=== PATIENT | female | born 1965 | race African-American/Black ===

== ENCOUNTER 2018-12-08 00:08 | Observation (INO) | payer OTHER ==
[~2018-12-08] VITALS: Ht 167.6 cm; Wt 74.6 kg
[2018-12-08] VITALS (23 sets, daily range): BP systolic 104–149; BP diastolic 56–84; PULSE 54–109; TEMP 97.5–98.7
[2018-12-08] MEDS ORDERED: ASPIRIN 32325 MG/TAB PO (00:57)
[2018-12-08] MEDS ORDERED: PRAVACHOL 40MG40 MG (00:58)
[2018-12-08] MEDS ORDERED: WATER PILL (01:01)
[2018-12-08] MEDS ORDERED: DEPRESSION PILL (01:01)
[2018-12-08] MEDS ORDERED: MULTIVITAMIN FO1 CAP PO (01:02)
[2018-12-08] MEDS ORDERED: VITAMINE200 (01:03)
--- NOTE | 2018-12-08 01:10 | NUR ---
Arrived to medical floor via EMS
--- NOTE | 2018-12-08 01:47 | NUR ---
Assessment completed. Right lower lobe diminished otherwise clear. Heart sounds normal. Bowels active x4. Pulses strong throughout. INT right AC present. Patient orientated to medical floor. During admission assessment patient displays cognitive impairment with delayed ability to answer questions and understanding of phrases. Patient unable to provide accurate medication rec. Patient states "water pill" "little orange pill" "purple pill." Will pass on to next shift to obtain medication list from [place] pharmacy/PCP. All questions answered. Denies needs at this time. Call light in reach. Attempted to [place] Dr. Christian of patient arrival. No answer at this time. Will try again later.
--- NOTE | 2018-12-08 03:05 | NUR ---
Reported 8/10 headache. Provided with PRN tylenol.
[2018-12-08 03:35] LABS: ALANINE AMINOTRANSFERASE 17 U/L (9-52); ALBUMIN 3.9 gm/dL (3.5-5.0); ALKALINE PHOSPHATASE 60 U/L (50-136); ANION GAP 8 mmol/L (7-16); AST,SGOT 35 U/L (15-37); BASO # 0.1 (0.0-0.2); BASO % 1.1 % (0.0-2.0); BILIRUBIN,TOTAL 0.3 mg/dL (0.0-1.0); BLOOD UREA NITROGEN 17 mg/dL (7-17); CALCIUM 8.9 mg/dL (8.4-10.2); CARBON DIOXIDE 28 mmol/L (22-30); CHLORIDE 107 mmol/L (98-107); CREATININE, serum 0.56 (0.52-1.25); EOS # 0.1 (0.0-0.7); EOS % 2.5 % (0-4.0); GLUCOSE 99 mg/dL (74-106); GRAN # 1.4 (1.4-6.5); GRAN % 30.4 % (42.2-75.2); HEMOGLOBIN 10.8 g/dl (12.5-16.0); LYMPH # 2.7 (1.2-3.4); LYMPH % 59.7 % (20.0-51.0); MEAN CELL VOLUME 85 fl (80.0-100.0); MEAN CORPUSCULAR HEMOGLOBIN 27 pg (27.0-31.0); MEAN CORPUSCULAR HGB CONC 32 g/dl (33.0-37.0); MEAN PLATELET VOLUME 9.6 fl (7.4-10.4); MONO # 0.3 (0.1-0.6); MONO % 6.3 % (1.7-9.3); PLATELET COUNT 230 K/mm3 (130-400); POTASSIUM 3.8 mmol/L (3.4-5.0); RED BLOOD COUNT 3.99 M/mm3 (4.10-5.30); REDCELL DISTRIBUTION WIDTH-CV 14.6 % (11.5-14.5); SODIUM 143 mmol/L (137-145); TOTAL PROTEIN 7.1 gm/dL (6.4-8.2)
[2018-12-08 03:46] LABS: TROPONIN-I < 0.012 ng/mL (0.000-0.035)
--- NOTE | 2018-12-08 06:23 | NUR ---
Patient had uneventful night. Received x1 dose of tylenol for a headache. Resting in bed this AM. Denies needs. Call light in reach.
--- NOTE | 2018-12-08 07:00 | NUR ---
Report given to SAGAR Villagran
--- NOTE | 2018-12-08 08:00 | NUR ---
PATIENT IS DROWSY AND RESTING IN BED THIS MORNING. PATIENT AROUSES EASILY TO NAME AND TOUCH. PATIENT IS A&OX4. VSS. TELE IN PLACE. BOWEL SOUNDS HYPOACTIVE ALL FOUR QUADRANTS. PATIENT IS NPO FOR TESTING. PATIENT DENIES ANY COMPLAINTS OF N/V. PATIENT DENIES CHEST PAIN, TIGHTNESS, PRESSURE OR SOB. POSITIVE PEDAL PULSES EQUAL BILATERALLY. RIGHT AC TO INT. CALL LIGHT WITHIN REACH. PATIENT DENIES ANY OTHER NEEDS AT THIS TIME.
--- NOTE | 2018-12-08 08:57 | NUR ---
PATIENT TAKEN TO RADIOLOGY FOR SCAN. WILL WAIT FOR PATIENT ARRIVAL BACK TO ROOM 311.
[2018-12-08 09:52] LABS: COLLECTION METHOD CLEAN CATCH
[2018-12-08 10:02] LABS: MUCOUS Present /lpf; PH 6 (5-8); SQUAMOUS EPITHELIAL 0-2 /hpf; URINE APPEARANCE Clear; URINE BACTERIA None Seen /hpf; URINE BILIRUBIN Negative (NEGATIVE); URINE BLOOD Negative (NEGATIVE); URINE COLOR Yellow; URINE GLUCOSE Negative (NEGATIVE); URINE KETONE Trace (NEGATIVE); URINE LEUKOCYTE ESTERASE Trace (NEGATIVE); URINE NITRATE Negative (NEGATIVE); URINE PROTEIN(semi-quant) Negative (NEGATIVE); URINE RBC 0-2 /hpf; URINE UROBILINOGEN Negative (NEGATIVE)
--- NOTE | 2018-12-08 10:35 | NUR ---
PATIENT ARRIVED BACK TO ROOM 311 FROM RADIOLOGY.
--- NOTE | 2018-12-08 11:24 | NUR ---
First visit from the cnc wood lathe operator. Publication Specialist prayed with patient and delivered bible to the patient per request. No other needs right now.
[2018-12-08 12:26] LABS: HEMATOCRIT 38.2 % (37.0-47.0); HEMOGLOBIN 12.1 g/dl (12.5-16.0); MEAN CELL VOLUME 86 fl (80.0-100.0); MEAN CORPUSCULAR HEMOGLOBIN 27 pg (27.0-31.0); MEAN CORPUSCULAR HGB CONC 32 g/dl (33.0-37.0); MEAN PLATELET VOLUME 9.9 fl (7.4-10.4); PLATELET COUNT 203 K/mm3 (130-400); RED BLOOD COUNT 4.44 M/mm3 (4.10-5.30); REDCELL DISTRIBUTION WIDTH-CV 14.6 % (11.5-14.5)
[2018-12-08 12:37] LABS: CALCIUM 9.3 mg/dL (8.4-10.2); CREATININE, serum 0.51 (0.52-1.25)
[2018-12-08 12:41] LABS: PROTHROMBIN TIME 11.6 SECONDS (9.7-12.8)
[2018-12-08 12:44] LABS: PARTIAL THROMBOPLASTIN TIME 29.7 SECONDS (26.0-37.0)
--- NOTE | 2018-12-08 12:53 | NUR ---
PATIENT CONSENT FORM SIGNED AND ON PATIENT CHART. PRE-OP MEDICATONS GIVEN. IV FLUIDS TO GRAVITY FLOW TUBING INFUSING TO RIGHT AC IV. PATIENT TAKEN TO SECURITIES LENDING TRADER VIA BED. WILL WAIT FOR ARRIVAL BACK TO ROOM 311.
--- NOTE | 2018-12-08 13:15 | NUR ---
ALL MEDICATIONS GIVEN VORB WITH MD. SEE MERGE FOR ALL MEDICATION ADMIN TIMES. SEE MERGE FOR ALL RASS ASSESSMENTS DURING AND POST PROCEDURE.
--- NOTE | 2018-12-08 14:00 | NUR ---
PATIENT ARRIVED BACK TO ROOM 311 VIA BED FROM STRUCTURAL STEEL ENGINEER. PATIENT IS SEDATED AND AROUSES TO TOUCH AND NAME. POST-OP VSS. RIGHT GROIN ANGIOSEAL IN PLACE AND DRESSING IS CD&I. RIGHT GROIN SOFT TO PALPATION. CALL LIGHT WITHIN REACH. NO NEEDS AT THIS TIME.
--- NOTE | 2018-12-08 15:14 | NUR ---
FABIAN met with the patient to discuss discharge plan. The patient had just returned from a procedure and was difficult to rouse. 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 She states that she has only one daughter, Keesha Correia (ph#[phone]) and that Keesha lives in [place]. She reports independence with ADLs and does not have any DME. The patient states she receives primary care at [facility], but she could not recall their name. [facility] The patient's nurse informed FABIAN that she spoke to Keesha and Keesha informed her that the patient's other daughter just committed suicide a couple weeks ago. The patient plans to return home upon discharge. SW to continue to follow with any discharge needs.
--- NOTE | 2018-12-08 17:45 | NUR ---
PATIENT POST-OP VSS. RIGHT FEMORAL ANGIOSEAL IN PLACE AND IS CD&I. RIGHT GROIN CATH SITE SOFT UPON PALPATION.PATIENT TOLERATING FOOD WITHOUT N/V.
--- NOTE | 2018-12-08 19:00 | NUR ---
REPORT GIVEN TO SAGAR GOSS.
--- NOTE | 2018-12-08 19:05 | NUR ---
Initial shift assessment done- denies pain, no requests, has been resting well- VSS, right groin site soft-no hematoma, dressing dry and intact- has been up to void without problems- tele on
--- NOTE | 2018-12-09 00:15 | NUR ---
Right groin site remains soft- no drainage- dressing dry and intact- pt denies pain, snack given per request
[2018-12-09 03:45] VITALS: BP 104/70; PULSE 57; TEMP 97.9
[2018-12-09 06:28] LABS: BASO % 0.4 % (0.0-2.0); GRAN # 5.8 (1.4-6.5); GRAN % 75.1 % (42.2-75.2); HEMATOCRIT 38.6 % (37.0-47.0); HEMOGLOBIN 12.1 g/dl (12.5-16.0); LYMPH # 1.5 (1.2-3.4); MEAN CELL VOLUME 86 fl (80.0-100.0); MEAN CORPUSCULAR HEMOGLOBIN 27 pg (27.0-31.0); MEAN CORPUSCULAR HGB CONC 31 g/dl (33.0-37.0); MEAN PLATELET VOLUME 10.1 fl (7.4-10.4); MONO # 0.4 (0.1-0.6); MONO % 5.2 % (1.7-9.3); PLATELET COUNT 244 K/mm3 (130-400); RED BLOOD COUNT 4.47 M/mm3 (4.10-5.30); REDCELL DISTRIBUTION WIDTH-CV 14.7 % (11.5-14.5)
--- NOTE | 2018-12-09 06:30 | NUR ---
Quiet night- VSS, right groin site soft,no drainage, dressing dry and intact
[2018-12-09 06:52] LABS: CALCIUM 9.5 mg/dL (8.4-10.2); CREATININE, serum 0.61 (0.52-1.25); POTASSIUM 4.3 mmol/L (3.4-5.0)
[2018-12-09 07:43] VITALS: BP 134/81; PULSE 85; TEMP 98.8
--- NOTE | 2018-12-09 09:17 | NUR ---
Pt assessment completed and charted. Pt laying in bed. Denies chest pain, dizziness, SOB. RAC and LH INT IV both flush well with no complications. Rt groin site is CDI, gauze and tegaderm, soft to touch, no pain. No other concerns voiced at this time. Per pt she "feels great" this morning.
[2018-12-09 11:24] VITALS: BP 110/79; PULSE 73; TEMP 98.4
--- NOTE | 2018-12-09 12:16 | NUR ---
Chaplain diaz and offered support with patient.
--- NOTE | 2018-12-09 12:43 | NUR ---
Pt discharge instructions discussed and reviewed with patient who verbalized understanding. All questions answered. RAC and LH INT IV dc'd with no complications. Pt awaiting taxi for discharge.
--- NOTE | 2018-12-09 13:21 | NUR ---
Plan: To Return home. Patient lives alone in [facility]. Pt had asked if this SW had any information on cabs to return to [place]. This SW informed the Patient that she would research and get back to her. This SW did attempt to speak with SM about cab fare prices from [place] to [place], however Patient had already called a cab herself and did not seem to be concerned about being able to pay for it.
--- NOTE | 2018-12-09 14:42 | NUR ---
Pt escorted out via wheelchair by mino Lebron.
== END 2018-12-09 14:43 | disposition home or self-care (01) ==
LOC: MEDICAL 00:08 → EDSEX 00:08 → MEDICAL 00:08
PROVIDERS: Internal Medicine Interventional Cardiology; Nurse Practitioner Family
DX: R07.9 Chest pain, unspecified (principal); I10 Essential (primary) hypertension; E78.5 Hyperlipidemia, unspecified; F32.9 Major depressive disorder, single episode, unspecified; F17.210 Nicotine dependence, cigarettes, uncomplicated; Z79.82 Long term (current) use of aspirin; Z79.899 Other long term (current) drug therapy; Z91.041 Radiographic dye allergy status
CPT/HCPCS: A9500; C1760; C1894; G0378; G0379; J1644; J1650; J2250; J2550; J2930; J3010; Q9967